=== PATIENT | female | born 1955 | race Caucasian/White ===

== ENCOUNTER → 2016-11-18 | Day surgery (SDC) | payer OTHER ==
[~2016-11-18] MED LIST: CLOB15CR2 TP; FENTANYL PF 100 MCG/2 ML VIAL. IV PRN; HYDR200T PO; HYDROMORPHONE 2 MG/ML VIAL. IV PRN; IBUP200T43 PO; IV RINGERS,LACTATED 1000ML 1,000 ML IV SCH; LEVO75TA PO; LIDOCAINE 1% 1 ML SYRINGE. ID PRN; LIDOCAINE 2% PF Vial for OR 5 ML VIAL. ONE; MORPHINE SULFATE 2 MG/ML DISP.SYRIN. IV PRN; MULT-246 PO; ONDANSETRON PF 4 MG/2 ML VIAL. IV PRN; POTA20TA82 PO; PROCHLORPERAZINE 10 MG/2 ML VIAL. IV PRN; PROPOFOL 40 ML IV ONE; RIZA10TA PO; VALS1TAB25 PO
[2016-11-18 09:31] VITALS: BP 135/87
--- NOTE | 2016-11-21 14:42 | PATHOLOGY ---
PATHOLOGY REPORT * * * * * * * * FINAL DIAGNOSIS: Esophageal biopsy: - Segments of hyperplastic squamous esophageal mucosa consistent with reflux esophagitis. COMMENT: Sections of the esophageal biopsy reveal segments of hyperplastic squamous esophageal mucosa. The findings are consistent with reflux esophagitis. There is no evidence of Bryant's change, dysplasia, or malignancy. (JPM:; d/t: 11/21/16) REPORT ELECTRONICALLY SIGNED BY: Amado Bettencourt M.D. DATE/TIME: 11/21/2016 14:40 * * * * * * * * GROSS PATHOLOGY: Received in formalin labeled "Yara Lundy and esophageal biopsies," are 4 segments of lagos soft tissue measuring 2.1 x 0.3 x 0.2 cm in aggregate dimensions and ranging from 0.3 to 0.4 cm in maximum dimension. The specimen is submitted entirely in cassette A1. (TTL; 11/18/2016) INITIAL CPT CODE(S): A; 51216 Professional services performed by [facility] [place] [address] Technical services performed by [facility] at [address] [place] [address]. SPECIMEN(S) RECEIVED: A.Esophageal biopsy CLINICAL HISTORY: Heartburn, constipation, reflux, r/o Brynat's PATIENT: YARA LUNDY /AGE: 803/28/1955 (Age: 61) PATIENT #: [id number] ALT CASE #: SPECIMEN COLLECTION DATE: 11/18/2016 SPECIMEN RECEIVED DATE: 11/18/2016 [facility] - [address] [place] [address] - PHONE: [phone] * * * END OF REPORT * * *
== END | disposition home or self-care (01) ==
LOC: ENDOS 07:06
PROVIDERS: ATTEND Internal Medicine Gastroenterology
DX: K64.0 First degree hemorrhoids (principal); K21.0 Gastro-esophageal reflux disease with esophagitis; K29.50 Unspecified chronic gastritis without bleeding; M19.90 Unspecified osteoarthritis, unspecified site; F32.9 Major depressive disorder, single episode, unspecified; E11.9 Type 2 diabetes mellitus without complications; I10 Essential (primary) hypertension; Z83.3 Family history of diabetes mellitus; Z90.710 Acquired absence of both cervix and uterus
CPT/HCPCS: 43239; 45378; J2704; 88305